=== PATIENT | female | born 1990 | race African-American/Black ===

== ENCOUNTER 2016-05-08 16:34 | Emergency (ER) | payer OTHER ==
[2016-05-08 17:42] LABS: BASO % 0.5 % (0.0-1.0); EOS # 0.1 K/mm3 (0.0-0.50); EOS % 1.7 % (0.0-3.0); LARGE UNSTAINED CELL # 0.1 K/mm3 (0.0-0.4); LARGE UNSTAINED CELL % 2.5 % (0.0-4.0); LYMPH # 1.2 K/mm3 (1.5-6.5); MEAN CORPUSCULAR HEMOGLOBIN 24.4 pg (27.0-33.0); MEAN CORPUSCULAR HGB CONC 30.6 g/dl (32.0-36.5); MEAN CORPUSCULAR VOLUME 79.8 fl (80.0-96.0); MONO # 0.2 K/mm3 (0.0-0.8); MONO % 4.7 % (0.0-5.0); NEUTROPHILS # 3.5 K/mm3 (1.8-7.7); NEUTROPHILS % 67.7 % (36.0-66.0); PLATELET COUNT, AUTOMATED 244 k/mm3 (150-450); RED CELL DISTRIBUTION WIDTH 13.4 % (11.5-14.5); WHITE BLOOD COUNT 5.2 K/mm3 (4.0-10.0)
--- NOTE | 2016-05-08 18:00 | REP ---
Clinical: Vaginal bleeding . Technique: Transabdominal pelvic ultrasound followed by transvaginal examination for better evaluation of the endometrium and adnexa with color Doppler evaluation of the ovaries. Findings: Bladder is empty and grossly unremarkable . Normal anteverted uterus measures 7.5 x 3.9 x 5.6 cm . The endometrial complex measures 2.3 mm thickness. No discrete uterine or endometrial abnormalities are appreciated. Bilateral ovaries are normal in appearance and vascularity without evidence for torsion. Right ovary measures 2.8 x 1.7 x 3.0 cm ; R I = 0.48 . Left ovary measures 2.9 x 1.4 x 3.6 cm ; R I = 0.63 . No pelvic fluid or adnexal mass lesion. . Impression: 1. Normal pelvic ultrasound. Signed by Alfred Ortez MD 05/08/2016 05:52 P
--- NOTE | 2016-05-08 19:13 | EDDOCDS ---
Physician Documentation [facility] Name: Atnonio Hopper Age: 25 yrs Sex: Female : 1990 Arrival Date: 05/08/2016 Time: 16:34 Bed I3 / M3 Private MD: FLNixon GOMES Disposition: 05/08/16 18:51 Discharged to Home/Self Care. Impression: Abnormal uterine and vaginal bleeding, unspecified. - Condition is Stable. - Discharge Instructions: Abnormal Uterine Bleeding. - Prescriptions for Provera 5 mg Oral tablet - take 1 tablet by ORAL route once daily for 5 days; 5 tablet. - Medication Reconciliation, Local Pharmacy Hours form. - Follow up: Emergency Department; When: As needed; Reason: Worsening of conditions. Follow up: Nixon Solis, OB; When: Call to arrange an appointment; Reason: Wound/Symptom Recheck, Recheck today's complaints, Worsening of conditions, Continuance of care. - Problem is an ongoing problem. - Symptoms are unchanged. Historical: - Allergies: no known allergies; - Home Meds: 05/19 (21) 1-20 mg-mcg oral tab 1 tab once daily - PMHx: Endometriosis; - PSHx: none; - Social history: Smoking status: Patient states former smoker of tobacco. No barriers to communication noted, The patient speaks fluent [place]. - Family history: Not pertinent. - : The pt / caregiver states he / she is not on anticoagulants. Home medication list is obtained from the patient. - Exposure Risk Screening:: None identified. 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 6 in. (167.64 cm) (R); 17:03 BP 97 / 54; Pulse 70; Resp 18; Pulse Ox 98% on R/A; Pain 7/10; dls 18:58 BP 109 / 67; Pulse 67; Resp 18; Temp 99.1; Pulse Ox 100% ; Pain 8/10; ajs 16:35 Body Mass Index 20.82 (58.51 kg, 167.64 cm) dd6 MDM: 16:54 IV Saline Lock ordered. cc10 16:54 NS 0.9% 1000 ml IV at bolus once ordered. cc10 16:54 Set up pelvic ordered. cc10 16:54 Undress patient appropriately for examination ordered. cc10 16:54 UCG by Nursing ordered. cc10 16:55 CBC with Diff Ordered. EDMS 16:55 Wet Prep Ordered. EDMS 16:55 -US Pelvic Non-Ob Complete Ordered. EDMS 16:55 DUPLEX SCAN LIMITED (DOPPLER)+US Ordered. EDMS 17:51 Transvaginal NON- US Ordered. EDMS 18:19 CBC with Diff Reviewed. cc10 18:19 -US Pelvic Non-Ob Complete Reviewed. cc10 18:29 Financial registration complete. zo 18:38 [facility] [place] Payment Agreement was scanned into [employer] and attached to record. zo 18:48 Wet Prep Reviewed. cc10 18:48 Transvaginal NON- US Reviewed. cc10 Point of Care Testing: Urine : 17:22 hCG Reading: Negative; Control Reading: Positive; rs6 Ranges: Administered Medications: 17:58 Drug: NS 0.9% 1000 ml Route: IV; Rate: bolus; Site: left antecubital; jmk 19:11 Follow up: IV Status: Completed infusion cp1 Signatures: Dispatcher [employer] Billy Gomez RosemaryRN RN rs3 Josi Rodriguez,STATION BAGGAGE AGENT STATION BAGGAGE AGENT cp1 Franky Greenberg, DONTRELL PANanette cc10 Gutierrez Rice RN The chart was reviewed and I authenticate all verbal orders and agree with the evaluation and treatment provided.Attachments: 18:38 [facility] [place] Payment Agreement zo MTDD
--- NOTE | 2016-05-08 19:13 | EDDOCDS ---
Nurse's Notes [facility] Name: Antonio Hopper Age: 25 yrs Sex: Female : 1990 Arrival Date: 05/08/2016 Time: 16:34 Bed I3 / M3 Private [facility] Diagnosis: Abnormal uterine and vaginal bleeding, unspecified Presentation: 05/08 16:41 Presenting complaint: Patient states: Vaginal bleeding for 17 days. Was seen in [address] given Provera. has not taken it. Since she was on 05/19. reports of low iron level. has been going through 2 magen pads per hour. reports of lower abdominal pain and lightheadedness. Risk factors: The patient reports no loss of conciousness prior to arrival. This patient has not had a hysterectomy. Risk factors: This patient has not begun menopause. Adult Sepsis Screening: The patient does not have new or worsening altered mentation. Patient's respiratory rate is less than 22. Systolic blood pressure is greater than 100. Patient has a qSOFA score of 0- Negative Sepsis Screen. Suicide/Homicide risk assessment- the patient denies having any suicidal and/or homicidal ideations and does not present with any other emotional, behavioral or mental health complaints. 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 Transition of care: patient was not received from another setting of care. 16:41 Acuity: CARRIE Level 3 3 16:41 Method Of Arrival: Walkin/Carried/Asstd rs3 Triage Assessment: 16:46 General: Appears in no apparent distress. Pain: Location: right lower quadrant and left rs3 lower quadrant. Pt Declines HIV testing. : Reports vaginal bleeding that is heavy flow. 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 05/19 (21) 1-20 mg-mcg oral tab 1 tab once daily - PMHx: Endometriosis; - PSHx: none; - Social history: Smoking status: Patient states former smoker of tobacco. No barriers to communication noted, The patient speaks fluent Serbian. - Family history: Not pertinent. - : The pt / caregiver states he / she is not on anticoagulants. Home medication list is obtained from the patient. - Exposure Risk Screening:: None identified. Screenin:47 Screening information is obtained from the patient. Primary language is Serbian. Fall dls risk: No risks identified. Assistance ADL's: requires no assistance with activities of daily living. Abuse/DV Screen: The patient / caregiver reports he/she is: not in a situation that causes fear, pain or injury. Nutritional screening: No deficits noted. Advance Directives: Currently, there is no health care proxy. There is no active DNR order. There is no living will. home support is adequate. Assessment: 18:46 General: see triage note.. Awake, alert, oriented. Skin warm and dry. Moves all dls extremities. Bilateral breath sounds clear. Respirations unlabored. Abdomen soft, non-tender. No apparent distress. The patient / caregiver is instructed regarding the plan of care and ED course. Physical assessment to be completed by PA/CAROLYN. Vital Signs: 16:35 BP 117 / 65; Pulse 82; Resp 18 S; Temp 98.6(O); Pulse Ox 99% on R/A; Weight 58.51 kg dd6 (R); Height 5 ft. 6 in. (167.64 cm) (R); 17:03 BP 97 / 54; Pulse 70; Resp 18; Pulse Ox 98% on R/A; Pain 7/10; dls 18:58 BP 109 / 67; Pulse 67; Resp 18; Temp 99.1; Pulse Ox 100% ; Pain 8/10; ajs 16:35 Body Mass Index 20.82 (58.51 kg, 167.64 cm) dd6 Vitals: 16:35 Log In Time: May 08, 2016 at 16:33. dd6 ED Course: 16:35 Patient visited by Ron Sauceda PCA. dd6 16:35 [facility] Physician. dd6 16:35 Patient moved to Waiting dd6 16:36 Patient moved to Pre RCE dd6 16:45 Triage Initiated rs3 16:47 Patient moved to Triage 1 rs3 16:49 Franky Greenberg PA-C [facility]. cc10 16:49 Tom Aguayo DO is Attending Physician. cc10 16:49 Patient visited by Franky Greenberg PA-C. cc10 16:49 Patient visited by Franky Greenberg PA-C. cc10 16:54 Almita Flores, RN is Primary Nurse. ar3 16:54 Patient moved to I3 / M3 ar3 17:23 Patient visited by Georgia Colorado PCA. rs6 17:32 CBC with Diff Sent. jmk 18:18 -US Pelvic Non-Ob Complete Returned. EDMS 18:20 Assist provider with pelvic exam: Set up pelvic tray. Specimens sent to lab. rs6 18:29 Pt greeted and oriented to ED. Patient advised of names of staff involved in care, rs6 location of call renee, wait times and NPO status. Patient has correct armband on for positive identification. Placed in gown. Bed in low position. Call light in reach. Side rails up X 1. Cardiac monitoring not applicable on this patient. 18:30 Patient visited by Georgia Colorado PCA. rs6 18:38 [facility] Payment Agreement was scanned into [employer] and attached to record. zo 18:43 Transvaginal NON- US Returned. dls 18:51 Nixon Solis OB is Referral Physician. cc10 18:58 Patient visited by Nisha Morgan. ajs 19:12 Discontinued lock bleeding controlled, pressure dressing applied, No redness/swelling cp1 at site. Administered Medications: 17:58 Drug: NS 0.9% 1000 ml Route: IV; Rate: bolus; Site: left antecubital; jmk 19:11 Follow up: IV Status: Completed infusion cp1 Point of Care Testing: Urine : 17:22 hCG Reading: Negative; Control Reading: Positive; rs6 Ranges: Order Results: Lab Order: CBC with Diff; SPEC'M 05/08/16 17:30 Test: WHITE BLOOD COUNT; Value: 5.2; Range: 4.0-10.0; Units: K/mm3; Status: F Test: RED BLOOD COUNT; Value: 4.62; Range: 4.00-5.40; Units: M/mm3; Status: F Test: HEMOGLOBIN; Value: 11.3; Range: 12.0-16.0; Abnormal: Below low normal; Units: g/dl; Status: F Test: HEMATOCRIT; Value: 36.9; Range: 36.0-47.0; Units: %; Status: F Test: MEAN CORPUSCULAR VOLUME; Value: 79.8; Range: 80.0-96.0; Abnormal: Below low normal; Units: fl; Status: F Test: MEAN CORPUSCULAR HEMOGLOBIN; Value: 24.4; Range: 27.0-33.0; Abnormal: Below low normal; Units: pg; Status: F Test: MEAN CORPUSCULAR HGB CONC; Value: 30.6; Range: 32.0-36.5; Abnormal: Below low normal; Units: g/dl; Status: F Test: RED CELL DISTRIBUTION WIDTH; Value: 13.4; Range: 11.5-14.5; Units: %; Status: F Test: PLATELET COUNT, AUTOMATED; Value: 244; Range: 150-450; Units: k/mm3; Status: F Test: NEUTROPHILS %; Value: 67.7; Range: 36.0-66.0; Abnormal: Above high normal; Units: %; Status: F Test: LYMPH %; Value: 23.0; Range: 24.0-44.0; Abnormal: Below low normal; Units: %; Status: F Test: MONO %; Value: 4.7; Range: 0.0-5.0; Units: %; Status: F Test: EOS %; Value: 1.7; Range: 0.0-3.0; Units: %; Status: F Test: BASO %; Value: 0.5; Range: 0.0-1.0; Units: %; Status: F Test: LARGE UNSTAINED CELL %; Value: 2.5; Range: 0.0-4.0; Units: %; Status: F Test: NEUTROPHILS #; Value: 3.5; Range: 1.8-7.7; Units: K/mm3; Status: F Test: LYMPH #; Value: 1.2; Range: 1.5-6.5; Abnormal: Below low normal; Units: K/mm3; Status: F Test: MONO #; Value: 0.2; Range: 0.0-0.8; Units: K/mm3; Status: F Test: EOS #; Value: 0.1; Range: 0.0-0.50; Units: K/mm3; Status: F Test: BASO #; Value: 0.0; Range: 0.0-0.2; Units: K/mm3; Status: F Test: LARGE UNSTAINED CELL #; Value: 0.1; Range: 0.0-0.4; Units: K/mm3; Status: F Lab Order: Wet Prep; SPEC'M 05/08/16 18:20 Test: WET PREP; Value: WET PREP RESULT; Status: F Test: WET PREP; Value: FEW WBC; Status: F Test: WET PREP; Value: FEW RBC; Status: F Test: WET PREP; Value: FEW EPITHELIAL CELLS PRESENT; Status: F Test: WET PREP; Value: FEW SHORT RODS PRESENT; Status: F Test: WET PREP; Value: FEW LONG RODS PRESENT; Status: F Radiology Order: -US Pelvic Non-Ob Complete Test: -US Pelvic Non-Ob Complete REASON FOR EXAMINATION: Vaginal Bleeding - Nn-; Clinical: Vaginal bleeding .; ; Technique: Transabdominal pelvic ultrasound followed by transvaginal examination; for better evaluation of the endometrium and adnexa with color Doppler evaluation; of the ovaries.; ; Findings:; ; Bladder is empty and grossly unremarkable .; ; Normal anteverted uterus measures 7.5 x 3.9 x 5.6 cm . The endometrial complex; measures 2.3 mm thickness. No discrete uterine or endometrial abnormalities are; appreciated.; ; Bilateral ovaries are normal in appearance and vascularity without evidence for; torsion. Right ovary measures 2.8 x 1.7 x 3.0 cm ; R I = 0.48 . Left ovary; measures 2.9 x 1.4 x 3.6 cm ; R I = 0.63 .; ; No pelvic fluid or adnexal mass lesion. .; ; Impression:; 1. Normal pelvic ultrasound.; ; ; Signed by; Alfred Ortez MD 05/08/2016 05:52 P; Outcome: 18:51 Discharge ordered by Provider. cc10 19:11 Discharge Assessment: Patient awake, alert and oriented x 3. No cognitive and/or cp1 functional deficits noted. Patient verbalized understanding of disposition instructions. patient administered narcotics - no. The following High Risk Discharge criteria are identified: None. Discharged to home ambulatory. Condition: stable. Discharge instructions given to patient, Instructed on discharge instructions, follow up and referral plans. medication usage, Demonstrated understanding of instructions, medications, Pt was receptive of discharge instructions/ teaching. Prescriptions given X 1. Ultrasound Study completed. Property sent home with patient. :Personal belongings accompany Pt. 19:12 Patient left the ED. cp1 Signatures: Dispatcher MedHost EDMS Gutierrez Rice RN RN Almita Harrington RN RN dls Billy Mixon Daniell, SYNTHETIC DEPARTMENT SUPERVISOR SYNTHETIC DEPARTMENT SUPERVISOR dd6 Angeles,IMER Adame RN rs3 Samantha Hu, SYNTHETIC DEPARTMENT SUPERVISOR SYNTHETIC DEPARTMENT SUPERVISOR ar3 Josi Rodriguez,BODYBUILDER BODYBUILDER cp1 Nisha Morgan Colin, PA-C PA-C cc10 Georgia [place], SYNTHETIC DEPARTMENT SUPERVISOR SYNTHETIC DEPARTMENT SUPERVISOR rs6 MTDD
--- NOTE | 2016-05-10 20:13 | EDDOCDS ---
Physician Documentation [facility] Name: Antonio Hopper Age: 25 yrs Sex: Female : 1990 Arrival Date: 05/08/2016 Time: 16:34 Bed I3 / M3 Private MD: TXNixon GOMES Disposition: 05/08/16 18:51 Discharged to Home/Self Care. Impression: Abnormal uterine and vaginal bleeding, unspecified. - Condition is Stable. - Discharge Instructions: Abnormal Uterine Bleeding. - Prescriptions for Provera 5 mg Oral tablet - take 1 tablet by ORAL route once daily for 5 days; 5 tablet. - Medication Reconciliation, Local Pharmacy Hours form. - Follow up: Emergency Department; When: As needed; Reason: Worsening of conditions. Follow up: Nixon Solis, OB; When: Call to arrange an appointment; Reason: Wound/Symptom Recheck, Recheck today's complaints, Worsening of conditions, Continuance of care. - Problem is an ongoing problem. - Symptoms are unchanged. Historical: - Allergies: no known allergies; - Home Meds: 05/19 (21) 1-20 mg-mcg oral tab 1 tab once daily - PMHx: Endometriosis; - PSHx: none; - Social history: Smoking status: Patient states former smoker of tobacco. No barriers to communication noted, The patient speaks fluent Scottish. - Family history: Not pertinent. - : The pt / caregiver states he / she is not on anticoagulants. Home medication list is obtained from the patient. - Exposure Risk Screening:: None identified. 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 6 in. (167.64 cm) (R); 17:03 BP 97 / 54; Pulse 70; Resp 18; Pulse Ox 98% on R/A; Pain 7/10; dls 18:58 BP 109 / 67; Pulse 67; Resp 18; Temp 99.1; Pulse Ox 100% ; Pain 8/10; ajs 16:35 Body Mass Index 20.82 (58.51 kg, 167.64 cm) dd6 MDM: 16:54 IV Saline Lock ordered. cc10 16:54 NS 0.9% 1000 ml IV at bolus once ordered. cc10 16:54 Set up pelvic ordered. cc10 16:54 Undress patient appropriately for examination ordered. cc10 16:54 UCG by Nursing ordered. cc10 16:55 CBC with Diff Ordered. EDMS 16:55 Wet Prep Ordered. EDMS 16:55 -US Pelvic Non-Ob Complete Ordered. EDMS 16:55 DUPLEX SCAN LIMITED (DOPPLER)+US Ordered. EDMS 17:51 Transvaginal NON- US Ordered. EDMS 18:19 CBC with Diff Reviewed. cc10 18:19 -US Pelvic Non-Ob Complete Reviewed. cc10 18:29 Financial registration complete. zo 18:38 [facility] Payment Agreement was scanned into [email or web address] and attached to record. zo 18:48 Wet Prep Reviewed. cc10 18:48 Transvaginal NON- US Reviewed. cc10 05/09 01:36 T-Sheet-- Draft Copy was scanned into [email or web address] and attached to record. hs2 Point of Care Testing: Urine : 05/08 17:22 hCG Reading: Negative; Control Reading: Positive; rs6 Ranges: Administered Medications: 17:58 Drug: NS 0.9% 1000 ml Route: IV; Rate: bolus; Site: left antecubital; jmk 19:11 Follow up: IV Status: Completed infusion cp1 Signatures: Dispatcher MedHost EDMS Billy Mixon Rosemary, RN RN rs3 Josi Rodriguez,KETTLE OPERATOR KETTLE OPERATOR cp1 Franky Greenberg, PA-C PA-C cc10 Muna Avendaño, Reg Reg hs2 Gutierrez Rice RN The chart was reviewed and I authenticate all verbal orders and agree with the evaluation and treatment provided.Attachments: 18:38 [facility] Payment Agreement zo 05/09 01:36 T-Sheet-- Draft Copy hs2 Chart Complete MTDD
--- NOTE | 2016-05-10 20:13 | EDDOCDS ---
Physician Documentation [facility] Name: Antonio Hopper Age: 25 yrs Sex: Female : 1990 Arrival Date: 05/08/2016 Time: 16:34 Bed I3 / M3 Private MD: MDNixon GOMES Disposition: 05/08/16 18:51 Discharged to Home/Self Care. Impression: Abnormal uterine and vaginal bleeding, unspecified. - Condition is Stable. - Discharge Instructions: Abnormal Uterine Bleeding. - Prescriptions for Provera 5 mg Oral tablet - take 1 tablet by ORAL route once daily for 5 days; 5 tablet. - Medication Reconciliation, Local Pharmacy Hours form. - Follow up: Emergency Department; When: As needed; Reason: Worsening of conditions. Follow up: Nixon Solis, OB; When: Call to arrange an appointment; Reason: Wound/Symptom Recheck, Recheck today's complaints, Worsening of conditions, Continuance of care. - Problem is an ongoing problem. - Symptoms are unchanged. Historical: - Allergies: no known allergies; - Home Meds: 05/19 (21) 1-20 mg-mcg oral tab 1 tab once daily - PMHx: Endometriosis; - PSHx: none; - Social history: Smoking status: Patient states former smoker of tobacco. No barriers to communication noted, The patient speaks fluent Ethiopian. - Family history: Not pertinent. - : The pt / caregiver states he / she is not on anticoagulants. Home medication list is obtained from the patient. - Exposure Risk Screening:: None identified. 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 6 in. (167.64 cm) (R); 17:03 BP 97 / 54; Pulse 70; Resp 18; Pulse Ox 98% on R/A; Pain 7/10; dls 18:58 BP 109 / 67; Pulse 67; Resp 18; Temp 99.1; Pulse Ox 100% ; Pain 8/10; ajs 16:35 Body Mass Index 20.82 (58.51 kg, 167.64 cm) dd6 MDM: 16:54 IV Saline Lock ordered. cc10 16:54 NS 0.9% 1000 ml IV at bolus once ordered. cc10 16:54 Set up pelvic ordered. cc10 16:54 Undress patient appropriately for examination ordered. cc10 16:54 UCG by Nursing ordered. cc10 16:55 CBC with Diff Ordered. EDMS 16:55 Wet Prep Ordered. EDMS 16:55 -US Pelvic Non-Ob Complete Ordered. EDMS 16:55 DUPLEX SCAN LIMITED (DOPPLER)+US Ordered. EDMS 17:51 Transvaginal NON- US Ordered. EDMS 18:19 CBC with Diff Reviewed. cc10 18:19 -US Pelvic Non-Ob Complete Reviewed. cc10 18:29 Financial registration complete. zo 18:38 [facility] Payment Agreement was scanned into [employer] and attached to record. zo 18:48 Wet Prep Reviewed. cc10 18:48 Transvaginal NON- US Reviewed. cc10 05/09 01:36 T-Sheet-- Draft Copy was scanned into [employer] and attached to record. hs2 Point of Care Testing: Urine : 05/08 17:22 hCG Reading: Negative; Control Reading: Positive; rs6 Ranges: Administered Medications: 17:58 Drug: NS 0.9% 1000 ml Route: IV; Rate: bolus; Site: left antecubital; jmk 19:11 Follow up: IV Status: Completed infusion cp1 Signatures: Dispatcher [employer] EDMS Billy Mixon Rosemary, RN RN rs3 Josi Rodriguez,MEAL PACKER MEAL PACKER cp1 Franky Greenberg, PA-C PA-C cc10 Muna Avendaño, Reg Reg hs2 Gutierrez Rice RN The chart was reviewed and I authenticate all verbal orders and agree with the evaluation and treatment provided.Attachments: 18:38 [facility] Payment Agreement zo 05/09 01:36 T-Sheet-- Draft Copy hs2 Chart Complete MTDD
--- NOTE | 2016-05-10 20:13 | EDDOCDS ---
Nurse's Notes [facility] Name: Antonio Hopper Age: 25 yrs Sex: Female : 1990 Arrival Date: 05/08/2016 Time: 16:34 Bed I3 / M3 Private [facility] Diagnosis: Abnormal uterine and vaginal bleeding, unspecified Presentation: 05/08 16:41 Presenting complaint: Patient states: Vaginal bleeding for 17 days. Was seen in [address] given Provera. has not taken it. Since she was on 05/19. reports of low iron level. has been going through 2 magen pads per hour. reports of lower abdominal pain and lightheadedness. Risk factors: The patient reports no loss of conciousness prior to arrival. This patient has not had a hysterectomy. Risk factors: This patient has not begun menopause. Adult Sepsis Screening: The patient does not have new or worsening altered mentation. Patient's respiratory rate is less than 22. Systolic blood pressure is greater than 100. Patient has a qSOFA score of 0- Negative Sepsis Screen. Suicide/Homicide risk assessment- the patient denies having any suicidal and/or homicidal ideations and does not present with any other emotional, behavioral or mental health complaints. 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 Transition of care: patient was not received from another setting of care. 16:41 Acuity: CARRIE Level 3 3 16:41 Method Of Arrival: Walkin/Carried/Asstd rs3 Triage Assessment: 16:46 General: Appears in no apparent distress. Pain: Location: right lower quadrant and left rs3 lower quadrant. Pt Declines HIV testing. : Reports vaginal bleeding that is heavy flow. 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 05/19 (21) 1-20 mg-mcg oral tab 1 tab once daily - PMHx: Endometriosis; - PSHx: none; - Social history: Smoking status: Patient states former smoker of tobacco. No barriers to communication noted, The patient speaks fluent Croatian. - Family history: Not pertinent. - : The pt / caregiver states he / she is not on anticoagulants. Home medication list is obtained from the patient. - Exposure Risk Screening:: None identified. Screenin:47 Screening information is obtained from the patient. Primary language is Croatian. Fall dls risk: No risks identified. Assistance ADL's: requires no assistance with activities of daily living. Abuse/DV Screen: The patient / caregiver reports he/she is: not in a situation that causes fear, pain or injury. Nutritional screening: No deficits noted. Advance Directives: Currently, there is no health care proxy. There is no active DNR order. There is no living will. home support is adequate. Assessment: 18:46 General: see triage note.. Awake, alert, oriented. Skin warm and dry. Moves all dls extremities. Bilateral breath sounds clear. Respirations unlabored. Abdomen soft, non-tender. No apparent distress. The patient / caregiver is instructed regarding the plan of care and ED course. Physical assessment to be completed by PA/CAROLYN. Vital Signs: 16:35 BP 117 / 65; Pulse 82; Resp 18 S; Temp 98.6(O); Pulse Ox 99% on R/A; Weight 58.51 kg dd6 (R); Height 5 ft. 6 in. (167.64 cm) (R); 17:03 BP 97 / 54; Pulse 70; Resp 18; Pulse Ox 98% on R/A; Pain 7/10; dls 18:58 BP 109 / 67; Pulse 67; Resp 18; Temp 99.1; Pulse Ox 100% ; Pain 8/10; ajs 16:35 Body Mass Index 20.82 (58.51 kg, 167.64 cm) dd6 Vitals: 16:35 Log In Time: May 08, 2016 at 16:33. dd6 ED Course: 16:35 Patient visited by Ron Sauceda PCA. dd6 16:35 [facility] Phys[facility]. dd6 16:35 Patient moved to Waiting dd6 16:36 Patient moved to Pre RCE dd6 16:45 Triage Initiated rs3 16:47 Patient moved to Triage 1 rs3 16:49 Franky Greenberg PA-C [facility] cc10 16:49 Tom Aguayo DO is Attending Physician. cc10 16:49 Patient visited by Franky Greenberg PA-C. cc10 16:49 Patient visited by Franky Greenberg PA-C. cc10 16:54 Almita Flores, RN is Primary Nurse. ar3 16:54 Patient moved to I3 / M3 ar3 17:23 Patient visited by Georgia Colorado PCA. rs6 17:32 CBC with Diff Sent. jmk 18:18 -US Pelvic Non-Ob Complete Returned. EDMS 18:20 Assist provider with pelvic exam: Set up pelvic tray. Specimens sent to lab. rs6 18:29 Pt greeted and oriented to ED. Patient advised of names of staff involved in care, rs6 location of call renee, wait times and NPO status. Patient has correct armband on for positive identification. Placed in gown. Bed in low position. Call light in reach. Side rails up X 1. Cardiac monitoring not applicable on this patient. 18:30 Patient visited by Georgia Colorado PCA. rs6 18:38 [facility] Payment Agreement was scanned into Pic[employer] and attached to record. zo 18:43 Transvaginal NON- US Returned. dls 18:51 Nixon Solis OB is Referral Physician. cc10 18:58 Patient visited by Nisha Morgan. ajs 19:12 Discontinued lock bleeding controlled, pressure dressing applied, No redness/swelling cp1 at site. 05/09 01:36 T-Sheet-- Draft Copy was scanned into [employer] and attached to record. hs2 Administered Medications: 05/08 17:58 Drug: NS 0.9% 1000 ml Route: IV; Rate: bolus; Site: left antecubital; phuck 19:11 Follow up: IV Status: Completed infusion cp1 Point of Care Testing: Urine : 17:22 hCG Reading: Negative; Control Reading: Positive; rs6 Ranges: Order Results: Lab Order: CBC with Diff; SPEC'M 05/08/16 17:30 Test: WHITE BLOOD COUNT; Value: 5.2; Range: 4.0-10.0; Units: K/mm3; Status: F Test: RED BLOOD COUNT; Value: 4.62; Range: 4.00-5.40; Units: M/mm3; Status: F Test: HEMOGLOBIN; Value: 11.3; Range: 12.0-16.0; Abnormal: Below low normal; Units: g/dl; Status: F Test: HEMATOCRIT; Value: 36.9; Range: 36.0-47.0; Units: %; Status: F Test: MEAN CORPUSCULAR VOLUME; Value: 79.8; Range: 80.0-96.0; Abnormal: Below low normal; Units: fl; Status: F Test: MEAN CORPUSCULAR HEMOGLOBIN; Value: 24.4; Range: 27.0-33.0; Abnormal: Below low normal; Units: pg; Status: F Test: MEAN CORPUSCULAR HGB CONC; Value: 30.6; Range: 32.0-36.5; Abnormal: Below low normal; Units: g/dl; Status: F Test: RED CELL DISTRIBUTION WIDTH; Value: 13.4; Range: 11.5-14.5; Units: %; Status: F Test: PLATELET COUNT, AUTOMATED; Value: 244; Range: 150-450; Units: k/mm3; Status: F Test: NEUTROPHILS %; Value: 67.7; Range: 36.0-66.0; Abnormal: Above high normal; Units: %; Status: F Test: LYMPH %; Value: 23.0; Range: 24.0-44.0; Abnormal: Below low normal; Units: %; Status: F Test: MONO %; Value: 4.7; Range: 0.0-5.0; Units: %; Status: F Test: EOS %; Value: 1.7; Range: 0.0-3.0; Units: %; Status: F Test: BASO %; Value: 0.5; Range: 0.0-1.0; Units: %; Status: F Test: LARGE UNSTAINED CELL %; Value: 2.5; Range: 0.0-4.0; Units: %; Status: F Test: NEUTROPHILS #; Value: 3.5; Range: 1.8-7.7; Units: K/mm3; Status: F Test: LYMPH #; Value: 1.2; Range: 1.5-6.5; Abnormal: Below low normal; Units: K/mm3; Status: F Test: MONO #; Value: 0.2; Range: 0.0-0.8; Units: K/mm3; Status: F Test: EOS #; Value: 0.1; Range: 0.0-0.50; Units: K/mm3; Status: F Test: BASO #; Value: 0.0; Range: 0.0-0.2; Units: K/mm3; Status: F Test: LARGE UNSTAINED CELL #; Value: 0.1; Range: 0.0-0.4; Units: K/mm3; Status: F Lab Order: Wet Prep; SPEC'M 05/08/16 18:20 Test: WET PREP; Value: WET PREP RESULT; Status: F Test: WET PREP; Value: FEW WBC; Status: F Test: WET PREP; Value: FEW RBC; Status: F Test: WET PREP; Value: FEW EPITHELIAL CELLS PRESENT; Status: F Test: WET PREP; Value: FEW SHORT RODS PRESENT; Status: F Test: WET PREP; Value: FEW LONG RODS PRESENT; Status: F Radiology Order: -US Pelvic Non-Ob Complete Test: -US Pelvic Non-Ob Complete REASON FOR EXAMINATION: Vaginal Bleeding - Nn-; Clinical: Vaginal bleeding .; ; Technique: Transabdominal pelvic ultrasound followed by transvaginal examination; for better evaluation of the endometrium and adnexa with color Doppler evaluation; of the ovaries.; ; Findings:; ; Bladder is empty and grossly unremarkable .; ; Normal anteverted uterus measures 7.5 x 3.9 x 5.6 cm . The endometrial complex; measures 2.3 mm thickness. No discrete uterine or endometrial abnormalities are; appreciated.; ; Bilateral ovaries are normal in appearance and vascularity without evidence for; torsion. Right ovary measures 2.8 x 1.7 x 3.0 cm ; R I = 0.48 . Left ovary; measures 2.9 x 1.4 x 3.6 cm ; R I = 0.63 .; ; No pelvic fluid or adnexal mass lesion. .; ; Impression:; 1. Normal pelvic ultrasound.; ; ; Signed by; Alfred Ortez MD 05/08/2016 05:52 P; Outcome: 18:51 Discharge ordered by Provider. cc10 19:11 Discharge Assessment: Patient awake, alert and oriented x 3. No cognitive and/or cp1 functional deficits noted. Patient verbalized understanding of disposition instructions. patient administered narcotics - no. The following High Risk Discharge criteria are identified: None. Discharged to home ambulatory. Condition: stable. Discharge instructions given to patient, Instructed on discharge instructions, follow up and referral plans. medication usage, Demonstrated understanding of instructions, medications, Pt was receptive of discharge instructions/ teaching. Prescriptions given X 1. Ultrasound Study completed. Property sent home with patient. :Personal belongings accompany Pt. 19:12 Patient left the ED. cp1 Signatures: Dispatcher [employer] EDGutierrez Wei,RN RN Almita Harrington RN RN Billy Conley Daniell, WEB INTERFACE DEVELOPER WEB INTERFACE DEVELOPER dd6 Wendi Reynoso RN RN rs3 Samantha Hu, WEB INTERFACE DEVELOPER WEB INTERFACE DEVELOPER ar3 Josi Rodriguez,TRADE SHOW MANAGER TRADE SHOW MANAGER cp1 Nisha Morgan Colin, PA-C PA-C cc10 Georgia Colorado, WEB INTERFACE DEVELOPER WEB INTERFACE DEVELOPER rs6 Muna Avendaño, Reg Reg hs2 Chart Complete MTDD
== END 2016-05-08 19:12 | disposition home or self-care (01) ==
LOC: M ED 16:34
DX: N92.1 Excessive and frequent menstruation with irregular cycle (principal); N93.8 Other specified abnormal uterine and vaginal bleeding; Z79.3 Long term (current) use of hormonal contraceptives; Z87.891 Personal history of nicotine dependence

== ENCOUNTER → 2016-06-21 | Outpatient (REF) ==
--- NOTE | 2016-06-21 09:12 | REP ---
Clinical: Pain and disability. Technique: AP, lateral, bilateral oblique views left wrist. Findings: The carpal bones, surrounding osseous structures, soft tissues, and joint spaces are normal. There is no evidence for acute fracture or dislocation. No subcutaneous emphysema or radiodense foreign body. Impression: No acute fracture or dislocation Signed by Alfred Ortez MD 06/21/2016 09:04 A
== END ==
LOC: M SMT 08:45
PROVIDERS: ATTEND Internal Medicine
DX: Z02.71 Encounter for disability determination (principal)

== ENCOUNTER 2016-09-07 17:03 | Emergency (ER) | payer OTHER ==
[~2016-09-07] VITALS: Ht 167.6 cm; Wt 63.5 kg
[~2016-09-07 17:03] MED LIST: JUNE1.5T PO
[2016-09-07 17:04] VITALS: BP 116/63
[2016-09-07] MEDS ORDERED: SERO1TAB3 PO (17:15)
[2016-09-07] MEDS ORDERED: LIDOCAINE VISCOUS 2% SOLN 15ML UDC MT ONE (17:30)
[2016-09-07] MEDS ORDERED: AMOXICILLIN 500 MG CAP PO ONE (17:45)
[2016-09-07] MEDS ORDERED: LIDO1SOL7 MT (17:46)
[2016-09-07] MEDS ORDERED: AMOX500C PO (17:46)
== END 2016-09-07 17:56 | disposition home or self-care (01) ==
LOC: M ED 17:50
DX: J02.0 Streptococcal pharyngitis (principal); D50.9 Iron deficiency anemia, unspecified; F32.9 Major depressive disorder, single episode, unspecified; Z79.3 Long term (current) use of hormonal contraceptives

== ENCOUNTER → 2016-10-24 | Day surgery (SDC) | payer OTHER ==
[~2016-10-24] VITALS: Ht 167.6 cm; Wt 65.8 kg
[~2016-10-24] MED LIST changes: +ACET1TAB17 PO; +ACETAMINOPHEN 650 MG SUPP As Ordered ONE; +AMBI5TAB PO; +AMOX500C PO; +GLYCOPYRROLATE INJ 0.2 MG/ML 2 ML VIAL As Ordered ONE; +JUNETAB2 PO; +LIDO1SOL7 MT; +LIDOCAINE 2% INJ 100 MG/5 ML SDV (FOR ANES.) As Ordered ONE; +LR 1,000 ML IV SCH; +MEPERIDINE INJ 25 MG/ML VIAL (J2175) IV PRN; +METOCLOPRAMIDE INJ 10MG/2ML VIAL (J2765) As Ordered ONE; +METOCLOPRAMIDE INJ 10MG/2ML VIAL (J2765) IV PRN; +MIDAZOLAM INJ 2 MG/2 ML VIAL (J2250) As Ordered ONE; +MINI1CAP PO; +MIRT45TA PO; +NEOSTIGMINE 1MG/ML 5 ML SYRINGE (J2710) As Ordered ONE; +NS 1,000 ML IV SCH; +ONDANSETRON 4MG/2ML VIAL (J2405) As Ordered ONE; +ONDANSETRON 4MG/2ML VIAL (J2405) IV PRN; +PERCOCET 5MG/325MG TAB PO PRN; +PROPOFOL 200 MG/20 ML VIAL As Ordered ONE; +ROCURONIUM BROMIDE 50 MG/5 ML VIAL/SYRINGE As Ordered ONE; +SERO1TAB3 PO; +SODIUM CHLORIDE 0.9% 1000 ML IV ONE; +diphenhydrAMINE INJ 50MG/ML VIAL (J1200) IV PRN; +fentaNYL 100 MCG/2 ML INJECTION (J3010) As Ordered ONE; +fentaNYL 250 MCG/5 ML INJECTION (J3010) As Ordered ONE
[2016-10-24] MEDS: ACETAMINOPHEN 650 MG SUPP PR ONE ×2 (09:00→10:30)
[2016-10-24 09:24] LABS: MEAN CORPUSCULAR HEMOGLOBIN 22.5 pg (27.0-33.0); MEAN CORPUSCULAR HGB CONC 29.6 g/dl (32.0-36.5); RED CELL DISTRIBUTION WIDTH 14.5 % (11.5-14.5); WHITE BLOOD COUNT 6.8 K/mm3 (4.0-10.0)
[2016-10-24 10:01] LABS: ANION GAP 6 MEQ/L (8-16); BLOOD UREA NITROGEN 11 MG/DL (7-18); CALCIUM LEVEL 8.4 MG/DL (8.5-10.1); CARBON DIOXIDE LEVEL 26 MEQ/L (21-32); CHLORIDE LEVEL 108 MEQ/L (98-107); CREATININE FOR GFR 0.75 MG/DL (0.55-1.02); GLOMERULAR FILTRATION RATE > 60.0 (>60); GLUCOSE, FASTING 81 MG/DL (70-105); HCG, SERUM QUANTITATIVE < 1.0 MIU/ML; POTASSIUM SERUM 3.9 MEQ/L (3.5-5.1); SODIUM LEVEL 140 MEQ/L (136-145)
[2016-10-24] MEDS: BUPIVACAINE HCL 0.5% 10 ML VIAL As Ordered ONE (10:46)
[2016-10-24] MEDS: fentaNYL 100 MCG/2 ML INJECTION (J3010) IV PRN ×4 (11:30→11:51)
[2016-10-24 13:05] VITALS: BP 133/74
--- NOTE | 2016-10-24 18:04 | RO ---
DATE OF PROCEDURE: 10/24/2016 PREOPERATIVE DIAGNOSIS: Chronic pelvic pain, abnormal uterine bleeding. POSTOPERATIVE DIAGNOSIS: Chronic pelvic pain, abnormal uterine bleeding. OPERATION PROPOSED: Diagnostic laparoscopy, evaluation of treatment for endometriosis, hysteroscopy, dilation and curettage (D and C). OPERATION PERFORMED: Diagnostic laparoscopy and hysteroscopy. No dilation and curettage was performed. SURGEON: Dr. Norberto Lyman KNOT BUMPER: ANESTHESIA:general DESCRIPTION OF PROCEDURE: Under adequate anesthesia, prepped and draped in the lithotomy position. Sequentials on board. Colbert catheter in place. Acetaminophen suppository 1300 mg per rectum. No antibiotics required. Time- out performed. A weighted speculum was placed in the vagina. Single-tooth tenaculum on the anterior lip of the cervix, and the uterine elevator was placed in the endocervical canal. Reprepping and draping, a small subumbilical incision was made. Direct entry with visualization into the abdomen, inflating with CO2 at 14 mm of pressure, 3.1 liters of CO2 was placed. Panoramic review. The right upper quadrant was normal. The left upper quadrant was normal. The right round ligament was normal. The appendiceal area was normal. Anterior aspect of the bladder was normal. Cul-de-sac was clear. Uterosacrals were clean. Uterus was midline. Ovaries bilaterally were normal. Tubes to the fimbriated end were normal. There was no evidence of endometriosis as there had been a significant amount previously, the patient has been on oral contraceptives both for suppression of endometriosis and for suppression of her period. At this point in time, there is no demonstrable evidence of endometriosis. The scope was removed , the gas was exhaled, the subcuticular stitch in the umbilical area. Reevaluating, the cervix was dilated to a #14 Echols, hysteroscope was introduced , panoramic review. The ostia were normal. The cavity was clean and clear. No evidence of any excessive tissue at all. Very thin lining which is related to the fact that the patient is on the control pill. Her last period was September 16, 2016 and the uterine contents is significantly suppressed as it should be with no evidence of active bleeding. We used 125 mL in, 125 mL out. The uterus was replaced in anatomical position, the Colbert catheter was removed, and the patient was sent to recovery in good condition. This patient should continue on oral contraceptives; it appears to be working well and visualization of no evidence of endometriosis at the present time and no evidence of abnormal areas in the uterine cavity Copy to: Nixon GILL
== END | disposition home or self-care (01) ==
LOC: M SDC 08:52
PROVIDERS: ATTEND Obstetrics & Gynecology
DX: N93.9 Abnormal uterine and vaginal bleeding, unspecified (principal); R10.2 Pelvic and perineal pain; D64.9 Anemia, unspecified; F41.9 Anxiety disorder, unspecified; J45.909 Unspecified asthma, uncomplicated; G47.9 Sleep disorder, unspecified; Z79.3 Long term (current) use of hormonal contraceptives; Z87.81 Personal history of (healed) traumatic fracture; Z87.891 Personal history of nicotine dependence
CPT/HCPCS: 36415; 49320; 58555; 80048; 84702; 85027; 96374; J2250; J2405; J2710; J2765; J3010

== ENCOUNTER 2016-11-25 21:30 | Inpatient (IN) | payer OTHER ==
[~2016-11-25] VITALS: Ht 167.6 cm; Wt 64.4 kg
[~2016-11-25 21:30] MED LIST changes: -ACET1TAB17 PO; -ACETAMINOPHEN 650 MG SUPP As Ordered ONE; -GLYCOPYRROLATE INJ 0.2 MG/ML 2 ML VIAL As Ordered ONE; -JUNETAB2 PO; -LIDOCAINE 2% INJ 100 MG/5 ML SDV (FOR ANES.) As Ordered ONE; -LR 1,000 ML IV SCH; -MEPERIDINE INJ 25 MG/ML VIAL (J2175) IV PRN; -METOCLOPRAMIDE INJ 10MG/2ML VIAL (J2765) As Ordered ONE; -METOCLOPRAMIDE INJ 10MG/2ML VIAL (J2765) IV PRN; -MIDAZOLAM INJ 2 MG/2 ML VIAL (J2250) As Ordered ONE; -MINI1CAP PO; -MIRT45TA PO; -NEOSTIGMINE 1MG/ML 5 ML SYRINGE (J2710) As Ordered ONE; -NS 1,000 ML IV SCH; -ONDANSETRON 4MG/2ML VIAL (J2405) As Ordered ONE; -ONDANSETRON 4MG/2ML VIAL (J2405) IV PRN; -PERCOCET 5MG/325MG TAB PO PRN; -PROPOFOL 200 MG/20 ML VIAL As Ordered ONE; -ROCURONIUM BROMIDE 50 MG/5 ML VIAL/SYRINGE As Ordered ONE; -SODIUM CHLORIDE 0.9% 1000 ML IV ONE; -diphenhydrAMINE INJ 50MG/ML VIAL (J1200) IV PRN; -fentaNYL 100 MCG/2 ML INJECTION (J3010) As Ordered ONE; -fentaNYL 250 MCG/5 ML INJECTION (J3010) As Ordered ONE
[2016-11-25] MEDS ORDERED: NS 1,000 ML IV SCH (21:44)
[2016-11-25] MEDS ORDERED: NS 1,000 ML IV ONE (21:45)
[2016-11-25 21:54] LABS: BASO % 0.6 % (0.0-1.0); EOS # 0.2 K/mm3 (0.0-0.50); EOS % 2.6 % (0.0-3.0); LARGE UNSTAINED CELL # 0.3 K/mm3 (0.0-0.4); LARGE UNSTAINED CELL % 4.3 % (0.0-4.0); LYMPH # 1.6 K/mm3 (1.5-6.5); MEAN CORPUSCULAR HEMOGLOBIN 22.5 pg (27.0-33.0); MEAN CORPUSCULAR HGB CONC 30.5 g/dl (32.0-36.5); MEAN CORPUSCULAR VOLUME 73.9 fl (80.0-96.0); MONO # 0.4 K/mm3 (0.0-0.8); MONO % 6.7 % (0.0-5.0); NEUTROPHILS # 3.5 K/mm3 (1.8-7.7); NEUTROPHILS % 58.8 % (36.0-66.0); PLATELET COUNT, AUTOMATED 253 k/mm3 (150-450); WHITE BLOOD COUNT 5.9 K/mm3 (4.0-10.0)
[2016-11-25 22:04] LABS: CONTROL LINE HCG INT CTR LINE PRESENT
[2016-11-25 22:12] LABS: ALBUMIN/GLOBULIN RATIO 1.11 (1.00-1.93); ALKALINE PHOSPHATASE 33 U/L (45-117); ALT/SGPT 18 U/L (12-78); ANION GAP 10 MEQ/L (8-16); AST/SGOT 18 U/L (15-37); BILIRUBIN,DIRECT < 0.1 MG/DL (0.0-0.2); BILIRUBIN,TOTAL 0.3 MG/DL (0.2-1.0); BLOOD UREA NITROGEN 10 MG/DL (7-18); CALCIUM LEVEL 9.5 MG/DL (8.5-10.1); CARBON DIOXIDE LEVEL 25 MEQ/L (21-32); CHLORIDE LEVEL 105 MEQ/L (98-107); GLOMERULAR FILTRATION RATE > 60.0 (>60); GLUCOSE, FASTING 91 MG/DL (70-105); POTASSIUM SERUM 3.3 MEQ/L (3.5-5.1); SODIUM LEVEL 140 MEQ/L (136-145); TOTAL PROTEIN 7.6 GM/DL (6.4-8.2)
[2016-11-26] MEDS ORDERED: POTASSIUM CHLORIDE 10 MEQ SR TABLET PO ONE (01:00)
[2016-11-26 01:04] LABS: METHADONE URINE NEGATIVE (NEGATIVE)
--- NOTE | 2016-11-26 02:09 | ECGEPIP ---
Stationary ECG Study [facility] - ED Test Date: 2016-11-25 Pat Name: KESHAV STEVENSON Department: Room: - Gender: F Sql Database Developer: simran : 1990 Requested By: CHANDAN EDMONDSON Order Number: [id number] Reading MD: Donte Mukherjee Measurements Intervals [place] Rate: 90 P: 23 MI: 143 QRS: 57 QRSD: 86 T: 29 QT: 333 QTc: 409 Interpretive Statements SINUS RHYTHM SIMILAR TO 07/21/15 Electronically Signed On 11-26-2016 2:08:56 EDT by Donte Mukherjee
[2016-11-26] MEDS ORDERED: MAALOX 30 ML SUSP *UDC PO PRN (04:15)
[2016-11-26] MEDS ORDERED: ACETAMINOPHEN TAB 650MG DOSE (2X325MG) PO PRN (04:15)
[2016-11-26] MEDS ORDERED: MOM 30ML SUSPENSION UDC PO PRN (04:15)
[2016-11-26] MEDS ORDERED: hydrOXYzine 50 MG TAB PO PRN (04:15)
[2016-11-26] MEDS ORDERED: traZODone 50 MG TAB PO PRN (04:15)
[2016-11-26 04:56] VITALS: BP 133/88
[2016-11-26] MEDS ORDERED: JUNETAB2 PO (08:48)
[2016-11-26] MEDS ORDERED: ACET1TAB17 PO (08:48)
[2016-11-26] MEDS ORDERED: ESCITALOPRAM OXALATE 10 MG TAB (LEXAPRO) PO SCH (09:00)
--- NOTE | 2016-11-26 09:41 | REP ---
REASON: Drug overdose. COMPARISON: 12/21/2015 FINDINGS: The technique utilized in obtaining the radiograph has magnified the cardiac silhouette and accentuated the interstitial markings. The superior mediastinal structures are midline. The cardiac silhouette is unremarkable in size, shape, and position. The diaphragmatic surfaces of the lungs are regular, and the costophrenic angles are clear. The pulmonary gomez are clear. The imaged osseous structures are intact. IMPRESSION: There is no acute cardiopulmonary disease. Signed by Mookie Lovell DO 11/26/2016 10:16 A
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
[2016-11-26 18:23] VITALS: BP 132/88
[2016-11-26] MEDS: MIRTAZAPINE 15 MG TAB PO SCH (20:48)
[2016-11-26] MEDS: NITROFURANTOIN (MACROBID) 100 MG CAP PO SCH (22:36)
--- NOTE | 2016-11-27 02:31 | HPE ---
DATE OF ADMISSION: 11/26/2016 HISTORY OF PRESENT ILLNESS: Please refer to psychiatric history and evaluation for further details on this admission. This examination and history is intended for medical issues, which may need treatment, followup or consult on this 25-year-old female. ALLERGIES: No known allergies. PRIMARY CARE PROVIDER: [facility]. 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 Ethyl alcohol (EtOH) none. Smokes none. Recreational drug use: None. PAST MEDICAL HISTORY: Negative. PAST SURGICAL HISTORY: Laparoscopy. HOME MEDICATIONS: - Ambien 5 mg by mouth nightly as needed for sleep - Junel 1.5/30 mg/mcg one by mouth daily contraception FAMILY HISTORY: Noncontributory. LABORATORY STUDIES: WBC 5.9, hemoglobin 11.5, hematocrit 37.8. She is having her menses. Platelets 253. Sodium 140, potassium 3.3, replacement was given in the ER, chloride 105, CO2 25, BUN 10, creatinine 0.98. She was complaining of some frequency. Urinalysis shows positive nitrites, will start her on Macrobid. No fever. No chills. No flank pain. Toxicology screen negative. Chest x-ray no acute cardiopulmonary disease. REVIEW OF SYSTEMS: 10-system review was unremarkable other than as discussed above with the pressure and frequency during urination. PHYSICAL EXAMINATION: 25-year-old cooperative female in no acute distress. Vital signs are stable. Patient is alert and oriented times three. Pupils equal and react to light. Extraocular muscles intact. Cornea and sclerae clear. Conjunctivae were normal. No facial asymmetry. Pharynx, tongue and gums pink and moist. Tongue is midline. Neck is supple without lymphadenopathy. No thyromegaly, no goiter. Chest clear to auscultation without wheeze or retraction. Heart is regular. Abdomen is benign. Bowel sounds positive. Genitourinary/rectal: Not done. Extremities: Show equal strength, full range of motion. No cyanosis, clubbing or edema. Peripheral pulses equal and palpable bilaterally. Skin is warm and dry. IMPRESSION/PLAN: 1. Psychiatric plan per psychiatry. 2. Urinary tract infection (UTI). Followup on cultures. Start Macrobid 100 by mouth twice a day. Increase fluids by mouth.
[2016-11-27 06:48] VITALS: BP 113/80
[2016-11-27] MEDS: NITROFURANTOIN (MACROBID) 100 MG CAP PO SCH (09:06)
[2016-11-27] MEDS ORDERED: diphenhydrAMINE 25 MG CAP PO PRN (14:30)
[2016-11-27 18:00] VITALS: BP 103/64
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
[2016-11-27] MEDS: MIRTAZAPINE 15 MG TAB PO SCH (21:05)
[2016-11-28 08:45] LABS: ANION GAP 9 MEQ/L (8-16); BLOOD UREA NITROGEN 10 MG/DL (7-18); CALCIUM LEVEL 9.5 MG/DL (8.5-10.1); CARBON DIOXIDE LEVEL 27 MEQ/L (21-32); CHLORIDE LEVEL 106 MEQ/L (98-107); CREATININE FOR GFR 0.79 MG/DL (0.55-1.02); GLOMERULAR FILTRATION RATE > 60.0 (>60); GLUCOSE, FASTING 78 MG/DL (70-105); POTASSIUM SERUM 4.4 MEQ/L (3.5-5.1); SODIUM LEVEL 142 MEQ/L (136-145)
[2016-11-28] MEDS: JUNEL FE PO SCH (13:45)
[2016-11-28 18:00] VITALS: BP 120/74
[2016-11-28] MEDS: PRAZOSIN 1 MG CAP PO SCH (21:08)
[2016-11-28] MEDS: MIRTAZAPINE 15 MG TAB PO SCH (21:08)
--- NOTE | 2016-11-28 22:18 | IPN ---
DATE: 11/28/2016 VITAL SIGNS: Temperature 98.1, pulse 110, respirations 16, blood pressure 103/ 64. CURRENT MEDICATIONS: - Remeron 45 mg nightly - Benadryl 25 mg every 6 hours as needed HISTORY OF THE PRESENT ILLNESS: The patient states that her mood is good today. She denies any depression. She is isolating, according to staff. She is not socializing with the other patients. She did not sleep as well last night. She only slept for 4 or 5 hours. The night before, she slept almost 8 hours. She does have a bit of a drug hangover this morning, likely from the Remeron. Her chain of command came in yesterday to visit. Records were received from the [facility]: She has been on multiple psychotropics. She actually has been on Remeron before, but it was discontinued for some reason. She was recently on Wellbutrin, but that was discontinued. She has been on Trileptal 450 mg twice a day; patient cut back to 450 mg every morning with an attempt to wean off of it. She claims that it does not help either. She does not like being on all of these medications. Seroquel caused night sweats. Doxepin was not effective. Trazodone was a "failed trial." The patient is getting out of the in the next month or two. She has had no contact with her ex-boyfriend, a sergeant, and plans no further contact with him. We discussed a trial on Minipress for sleep. Side effect profile reviewed. She has never been on it to her recollection. The patient is very irritable about being here in the hospital. She is demanding to be discharged as soon as possible. She is considering a request for a court hearing. The patient has no therapist at [facility]. All she has a telepsychiatrist. Patient will need a local therapist upon discharge. MENTAL STATUS EXAM: The patient is alert and oriented. She is not very cooperative today. She is irritable. Affect appears improved. She is less anxious, less depressed. No signs of psychosis. No suicidal ideation. No signs of paranoia or thought disorder. DIAGNOSES: Post-traumatic stress disorder (PTSD). Adjustment disorder with mixed emotional features. PLAN: Continue Remeron, add Minipress 1 mg nightly. Patient encouraged to be more active in the hospital milieu. MTDD
[2016-11-29 07:08] VITALS: BP 117/54
[2016-11-29] MEDS: JUNEL FE PO SCH (08:57)
[2016-11-29 18:00] VITALS: BP 121/60
[2016-11-29] MEDS: MIRTAZAPINE 15 MG TAB PO SCH (21:03)
[2016-11-29 21:04] VITALS: BP 123/72
[2016-11-29] MEDS: PRAZOSIN 1 MG CAP PO SCH (21:04)
[2016-11-30 06:24] VITALS: BP 121/59
[2016-11-30] MEDS ORDERED: MINI1CAP PO (08:00)
[2016-11-30] MEDS ORDERED: MIRT45TA PO (08:00)
--- NOTE | 2016-11-30 08:01 | MHIPN ---
DATE: 11/29/2016 VITAL SIGNS: Temperature 97.4. Pulse 72. Respirations 16. Blood pressure 117/54. CURRENT MEDICATION: - Remeron 45 mg at bedtime - prazosin (Minipress) 1 mg at bedtime HISTORY OF PRESENT ILLNESS: The patient is still upset that she is here in the hospital. She wants to go home immediately. She claims that she has always been a "solitary" person. She is attending some of the groups however. The patient is able to contract for safety. She is not voicing any suicidal thoughts. She states her appetite is fine. The patient tolerated the Minipress well last night. She denies any orthostatic issues on it. She is not sure if she has been on this pharmaceutical product before or not, but is willing to continue it upon discharge. The staff will work on discharge planning. MENTAL STATUS EXAMINATION: The patient is alert and oriented. The patient is less oppositional today. She is less irritable. She is more cooperative, but still wants to be discharged. Affect is somewhat flat. She minimizes and in fact denies any depression. She denies any suicidal ideation. No signs of dangerousness. No signs of impulsivity. She is not psychotic. Grooming and hygiene appears quite good. DIAGNOSES: Post traumatic stress disorder. Adjustment disorder with mixed emotional features. PLAN: Continue Remeron and Minipress combination. Staff to work on discharge planning.
[2016-11-30] MEDS ORDERED: BACTRIM 160MG/800MG DS TAB PO SCH (09:00)
[2016-11-30] MEDS: JUNEL FE PO SCH (09:38)
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
== END 2016-11-30 10:52 | disposition home or self-care (01) | DRG 882 ==
LOC: EDBD 21:30 → M ED 21:30 → M ED INP 11-26 04:08 → M PSY 11-26 04:30
PROVIDERS: ADMIT Psychiatry & Neurology Psychiatry; ATTEND Psychiatry & Neurology Psychiatry
DX: F43.10 Post-traumatic stress disorder, unspecified (principal); N39.0 Urinary tract infection, site not specified; F43.25 Adjustment disorder with mixed disturbance of emotions and conduct; Z79.899 Other long term (current) drug therapy